=== PATIENT | female | born 1975 | race Caucasian/White ===

== ENCOUNTER → 2017-12-30 17:07 | Outpatient (CLI) | payer SELFPAY ==
[2018-01-03 15:43] LABS: HPV Reflexed? NOT INDICATED
== END ==
PROVIDERS: Visit Provider Obstetrics & Gynecology
DX: Z12.4 Encounter for screening for malignant neoplasm of cervix (principal)
CPT/HCPCS: 88175; G0145

== ENCOUNTER → 2018-06-26 13:54 | Outpatient (CLI) | payer SELFPAY ==
[2018-06-26 14:15] LABS: Hematocrit 37.7 % (37-47); Hemoglobin 12.2 g/dl (12.0-15.0); Mean Corp Hgb Conc 32.4 g/gl (32-36); Mean Corpuscular Hgb 28.4 pg (27.0-32.0); Mean Corpuscular Volume 87.9 fL (81-99); Mean Platelet Vol. 8.7 fl (6.2-12.0); Platelet Count 210 K/mm3 (150-450); RBC Distribution Width CV 13.1 % (11.6-14.6); RBC Distribution Width SD 42.2 fl (35.1-43.9); Red Blood Count 4.29 M/mm3 (4.2-5.4); White Blood Count 6.2 K/mm3 (4.4-11.0)
[2018-06-26 14:23] LABS: Scan Indicated on CBC? Y/N NO
[2018-06-26 14:53] LABS: Thyroid Stim Hormone (TSH) 1.59 uIU/mL (0.358-3.74)
== END ==
PROVIDERS: Visit Provider Obstetrics & Gynecology
DX: N92.5 Other specified irregular menstruation (principal)
CPT/HCPCS: 36415; 83001; 84443; 85027

== ENCOUNTER 2018-07-23 10:54 | Day surgery (SDC) | payer SELFPAY ==
--- NOTE | 2018-07-23 | EMB_PTH ---
PATIENT: ANNA MARIE BHAGAT LOC: [facility] – [place] U#:[id number] AGE/SX: 43/F ROOM: RE07/23/[address]: Dr. Janine Cruz MD : 1975 BED: DIS: 07/23/2018 SPEC #: [id number] RECD: 07/23/18 15:17 STATUS: RUSSEL KEN #: [id number] THAI: 07/23/18 00:[address]: Janine Cruz DEPT: SURGICAL PATHOLOGY RECD BY: Lakhwinder Odell ENTERED: 07/24/18 08:19 SP TYPE: ENDOFiorella BX/C RITU DR: RHIANNON Brewer Tissues: Endometrium, NOS Procedures: Surgery Specimen Level IV HEADER OPERATION: Hysteroscopy, dilatation and curettage, polypectomy PRE-OP DIAGNOSIS: Irregular bleeding, thickened endometrium TISSUE SUBMITTED: Endometrial curettings MICROSCOPIC DIAGNOSIS Endometrium, curettings: Simple hyperplasia without atypia. AM:omar 07/25/18 MICROSCOPIC DESCRIPTION Slides are reviewed. GROSS DESCRIPTION Received in fixative is one container labeled with the patient's name and designated endometrial curettings. The specimen consists of multiple fragments of hemorrhagic soft tissue that in aggregate measure 5 x 3 x 0.8 cm. The entire specimen is submitted in five cassettes. / SJ:omar 07/24/18 TC:5 CPT: 58063
[2018-07-23 11:35] VITALS: BP 108/93; PULSE 57; RESP 16; TEMP 37; O2SAT 100; BMI 22.6
[2018-07-23 11:38] LABS: Hematocrit 38.9 % (37-47); Hemoglobin 12.7 g/dl (12.0-15.0); Mean Corp Hgb Conc 32.6 g/gl (32-36); Mean Corpuscular Hgb 28.3 pg (27.0-32.0); Mean Corpuscular Volume 86.8 fL (81-99); Mean Platelet Vol. 8.5 fl (6.2-12.0); Platelet Count 193 K/mm3 (150-450); RBC Distribution Width SD 41.4 fl (35.1-43.9); Red Blood Count 4.48 M/mm3 (4.2-5.4); White Blood Count 4.1 K/mm3 (4.4-11.0)
[2018-07-23 11:40] LABS: Scan Indicated on CBC? Y/N NO
[2018-07-23 11:44] LABS: Partial Thromboplast Time 33.5 Seconds (24.1-36.2)
[2018-07-23 12:03] LABS: Pregnancy, Serum, hCG Quali. NEGATIVE Negative (0-9 Nonpreg)
--- NOTE | 2018-07-23 13:16 | DCINST_ITS ---
Discharge Diet: No Restrictions Discharge Activity: May Shower, May Take a Tub Bath May resume sexual activity in: 1 week Weight Bearing Status: Weight bearing as tolerated Call your doctor if you observe: Fever of 101 or Higher, Using more than one pad per hour, Uncontrolled pain Additional Instructions: You may take up to two Aleve or three Ibuprofen every 8 hr as needed for cramping. Allergies/Adverse Reactions: Allergies Sulfa (Sulfonamide Antibiotics) Allergy (Verified 07/22/18 14:31) Hives pseudoephedrine Adverse Reaction (Verified 07/22/18 14:31) PASS OUT Medications to take at Discharge NK [NK] 07/22/18 Primary Care Physician: Pamela Lopez NP-C [Primary Care Provider] - Test Results: Test results from this visit will be discussed in further detail at your follow- up appointment, if applicable. Please Follow Up With: Janine Cruz MD - [phone] When: two weeks for postop appointment Proposed Discharge Date: 07/23/18
[2018-07-23 14:03] VITALS: BP 108/93; BP 130/80; PULSE 82; RESP 16; TEMP 36.8; O2SAT 100
[2018-07-23 14:09] VITALS: BP 108/93; BP 116/79; PULSE 67; RESP 16; O2SAT 98
--- NOTE | 2018-07-23 14:11 | PCM.OP.BLANK ---
Operative Report Date of Procedure: 07/23/18 - menometrorrhagia, irreg bleeding. thickened endometrial stripe PROCEDURE: Hysteroscopy, Dilation and curettage Preoperative Diagnosis: Thickened endometrial stripe on pelvic ultrasound Menometrorrhagia, irreg menses Postop diagnosis: Thickened endometrial stripe on pelvic ultrasound Menometrorrhagia, irreg menses Anesthesia: MAC IV sedation Fran Meyer MD 5cc 1% lidocaine paracervical block (Jovani Cruz) Surgeon: Janine Cruz MD EBL: Minimal for case Drains: Red bhat, approx 300 cc clear yellow urine prior to case Complications: none Fluids: replacement Findings: normal appearing cervix Fluffy appearing endometrium. Neither tubal ostia visualized No endometrial polyp noted Narrative account After the R,B,Alternatives of the procedure were reviewed with the patient and her , informed consent was obtained. The patient was taken to the operating room with an IV running and placed in dorsal supine position on the operating table. She was given MAC IV sedation and repositioned to the dorsal lithotomy position and prepped and draped in the usual sterile fashion. A graves speculum was placed into the vagina and the cervix was brought into view. The cervix was normal appearing . A single toothed tenaculum was applied to the anterior lip of the cervix. The cervix was instilled with 5 cc of 1% lidocaine as a paracervical block using a 20 G spinal needle. The uterus sounded to 10 cm. The cervix was then probed and sequentially dilated to allow admission of the hysteroscope into the endometrial cavity. The hysteroscopy was performed with findings noted as above. There was a fluffy appearing endometrium globally noted, but no polyp. A sharp curettage was performed and multiple small pieces of tissue were withdrawn and set aside. One final pass was conducted with the sharp curette tip advanced through the cervix to the uterine fundus . The multiple pieces of tissue were set aside for later pathology review. Excellent hemostasis was noted. The single toothed tenaculum was removed from the cervix and a RayTec was used to remove any remaining tissue and blood from the upper vagina and cervix. The procedure was terminated. The speculum was removed. The patient was returned to dorsal supine position and awakened from IV sedation and transferred to her recovery room bed in stable condition after tolerating the procedure well. Sponge, lap, needle and instrument counts were correct x two. medications given intraoperatively included 5 cc of 1% lidocaine without epinephrine instilled as a paracervical block. The patient was also given Benadryl, and steroid prior to surgery for her extensive poison damian. She received Toradol 30 mg IV x one prior to procedure also. For a complete listing of the medications given intraoperatively, see the anesthesia record.
[2018-07-23 14:13] VITALS: BP 108/93; BP 114/72; PULSE 66; RESP 17; O2SAT 99
[2018-07-23 14:19] VITALS: BP 108/93; BP 111/67; PULSE 63; RESP 16; TEMP 36.9; O2SAT 98
[2018-07-23 14:55] VITALS: BP 108/93
== END 2018-07-23 14:55 | disposition home or self-care (01) ==
LOC: SDC 11:03 → AC 11:04
PROVIDERS: Family Provider Nurse Practitioner Family; PCP Nurse Practitioner Family; Visit Provider Obstetrics & Gynecology
PROC: 0UDB8ZZ Extraction of Endometrium, Via Natural or Artificial Opening Endoscopic (ICD-10-PCS; CPT 58558; principal; 2018-07-23 12:20)
DX: N85.01 Benign endometrial hyperplasia (principal); N92.1 Excessive and frequent menstruation with irregular cycle; Z87.891 Personal history of nicotine dependence
CPT/HCPCS: 00952; 58558; 36415; 84703; 85027; 85610; 85730; 88305; J7120

== ENCOUNTER → 2019-01-27 14:31 | Outpatient (CLI) | payer SELFPAY ==
[2019-01-27 17:18] LABS: Follicle Stimulating Hormone 4.5 mIU/mL; Prolactin 6.8 ng/mL; Thyroid Stim Hormone (TSH) 1.81 uIU/mL (0.358-3.74)
== END ==
PROVIDERS: Visit Provider Obstetrics & Gynecology
DX: N91.2 Amenorrhea, unspecified (principal)
CPT/HCPCS: 36415; 83001; 84146; 84443